=== PATIENT | female | born 1955 | race Caucasian/White ===

== ENCOUNTER → 2017-08-15 | Outpatient (CLI) | payer BC | END | disposition home or self-care (01) | LOC: KCIC MRI 14:03 | DX: M51.36 Other intervertebral disc degeneration, lumbar region (principal); M54.16 Radiculopathy, lumbar region; R20.0 Anesthesia of skin; M51.46 Schmorl's nodes, lumbar region; M43.16 Spondylolisthesis, lumbar region; M25.78 Osteophyte, vertebrae | CPT/HCPCS: 72148 ==